=== PATIENT | male | born 1970 | race Caucasian/White ===

== ENCOUNTER 2016-10-25 19:52 | Emergency (ER) | payer OTHER ==
[~2016-10-25] VITALS: Ht 190.5 cm; Wt 104.3 kg
[2016-10-25 20:05] VITALS: BP 153/88
--- NOTE | 2016-10-25 20:13 | Emergency Room Report ---
History of Present Illness General Chief Complaint: Head Injury Source: Patient Present Illness HPI Patient presents with complaints of injury to the right top parietal area of the scalp Patient was walking in the daylight structure It was reported to be somewhat low and he struck the top parietal area on that plastic covering he did crack the covering and also the glass Patient denies any loss of consciousness Denies any nausea vomiting Denies any neck pain Had some localized discomfort 3/10 to the injured area This occurred at approximately 4:00 in the afternoon patient's last tetanus shot was about 2 years ago Allergies: Coded Allergies: No Known Allergies (Unverified , 10/25/16) Patient History Past Medical History: see triage record Pertinent Family History: none Reviewed Nursing Documentation: PMH: Agreed, PSxH: Agreed Nursing Documentation-PMH Past Medical History: No Stated History Review of Systems All Other Systems: negative except mentioned in HPI Physical Exam Vital Signs Date Time Temp Pulse Resp B/P (MAP) Pulse Ox O2 Delivery O2 Flow Rate FiO2 10/25/16 19:55 98.1 54 18 153/88 98 Room Air Sp02 EP Interpretation: reviewed, normal General Appearance: well appearing, no apparent distress Head: normocephalic, other - Superficial 1 cm laceration top right parietal region Eyes: bilateral eye PERRL, bilateral eye EOMI ENT: normal pharynx, no angioedema Neck: full range of motion, supple Respiratory: lungs clear Musculoskeletal: normal inspection Neurologic: alert, oriented x3, responsive Skin: other - as above Lymphatic: no adenopathy Procedures Laceration/Wound Repair Laceration/Wound Repair : Consent: Verbal Wound Location: head Wound's Depth, Shape: superficial Wound Length (cm): 1 Wound Explored: clean Irrigated w/ Saline (ccs): 50 Wound Repaired With: Dermabond Sterile Dressing Applied?: No Splint Applied?: No Patient Tolerated: Well Complications: None Medical Decision Making Diagnostic Impression: Primary Impression: Acute head injury Additional Impression: Laceration ER Course Patient's laceration appears to be fairly superficial in nature Lites layer of Dermabond was applied The area does not appear to require suturing or staple placement Patient does not have any lapse of consciousness there is no hematoma, and no signs of vomiting patient does not meet criteria for acute imaging At this time stable for close outpatient followup , Last Vital Signs Date Time Temp Pulse Resp B/P (MAP) Pulse Ox O2 Delivery O2 Flow Rate FiO2 10/25/16 19:55 98.1 54 18 153/88 98 Room Air Status: improved Disposition: HOME, SELF-CARE Condition: Improved Additional Instructions: Patient is provided with the discharge instructions notified to follow up with primary doctor in the next 2-3 days otherwise return to the er with any worsening symptoms. Please note that this report is being documented using DRAGON technology. This can lead to erroneous entry secondary to incorrect interpretation by the dictating instrument. CORWIN CHAND D.O. Oct 25, 2016 20:13
[2016-10-25 20:22] VITALS: BP 153/88
== END 2016-10-25 20:22 | disposition home or self-care (01) ==
LOC: EMR 20:00
DX: S01.01XA Laceration without foreign body of scalp, initial encounter (principal); W22.8XXA Striking against or struck by other objects, initial encounter; Y93.9 Activity, unspecified; Y92.9 Unspecified place or not applicable
CPT/HCPCS: 99284